=== PATIENT | male | born 1980 | race Caucasian/White ===

== ENCOUNTER → 2023-05-11 10:57 | Outpatient (CLI) | payer BC, SELFPAY ==
--- NOTE | ~2023-05-11 | XR_ITS ---
XR shoulder LT min 2V DATE: 05/11/2023 11:06 INDICATION: Injury. Pain and limited range of motion, difficulty abducting arm TECHNIQUE: 4 views COMPARISON: None FINDINGS: No fracture or dislocation, periosteal reaction or bone destruction. Normal alignment at th e acromioclavicular and glenohumeral joints with preservation of joint spaces. No abnormal soft tissu e calcification. IMPRESSION: Negative Reviewed, dictated and finalized at location [facility]. IMPRESSION: Negative
== END ==
PROVIDERS: PCP Family Medicine; Visit Provider Nurse Practitioner Family
DX: M25.512 Pain in left shoulder (principal)
CPT/HCPCS: 73030

== ENCOUNTER → 2023-05-12 08:47 | Outpatient (CLI) | payer BC, SELFPAY ==
--- NOTE | ~2023-05-12 | MR_ITS ---
MRI of the left shoulder Technique: Axial proton-density fat-sat images, coronal proton density fat-sat and T2 fat-sat images, and sagittal T1-weighted and T2 fat-sat images were acquired. Clinical History: Pain Findings: There is [id number] AC joint degenerative change. Coracoclavicular, coracoacromial, a nd coracohumeral ligaments are intact. Supraspinatus and infraspinatus tendons are intact, without partial or full-thickness tear. Subscapul dami tendon is intact with mild tendinosis. Tendon of the long head of the biceps is intact. No definite labral tear identified. Inferior glenohumeral ligament is intact. No significant glenohumeral joint effusion or degenerative change. No fluid distention of the subacromial/subdeltoid bursa. No muscle atrophy or edema. Impression: [id number]-[id number] AC joint degenerative change. No labral or rotator cuff tear identified. Reviewed, dictated and finalized at [facility]. Impression: [id number] AC joint degenerative change. No labral or rotator cuff tear identified.
== END ==
PROVIDERS: PCP Nurse Practitioner Family; Visit Provider Nurse Practitioner Family
DX: M25.512 Pain in left shoulder (principal)
CPT/HCPCS: 73221